=== PATIENT | female | born 1945 | race Caucasian/White ===

== ENCOUNTER 2016-07-28 13:38 | Emergency (ER) | payer OTHER, MEDICARE ==
[~2016-07-28] VITALS: Ht 172.7 cm; Wt 72.6 kg
--- NOTE | 2016-07-28 14:04 | ED GENERAL ADULT ---
See Addendum History of Present Illness General Chief Complaint: Lower Extremity Problems Stated Complaint: RIGHT HAND SWELLING Source: patient Exam Limitations: no limitations Vital Signs & Intake/Output Vital Signs & Intake/Output Vital Signs Date Time Temp Pulse Resp B/P B/P Pulse O2 O2 Flow FiO2 Mean Ox Delivery Rate 07/28 1648 98.0 84 18 124/74 100 Room Air 07/28 1529 97.8 84 18 119/68 96 Room Air 07/28 1350 99.3 91 20 123/79 98 Room Air Allergies Coded Allergies: No Known Allergies (07/28/16) Reconcile Medications Prednisone 20 MG TABLET 1 TAB PO DAILY ARTHRITIS TAKE WITH FOOD Triage Note: PAIN IN RIGHT HAND X 1 WEEK. PT STATES PAIN IS SHOOTING IN NATURE. PT DENIES INJURY. +SWELLING IN HAND Triage Nurses Notes Reviewed? yes Onset: Abrupt Duration: day(s): Timing: recent history HPI: 07/28/16 2:20 PM 71-year-old female presents to the emergency Department severe right-sided dorsal hand pain and restriction in her right shoulder. She says she's had swelling to the hand. She says it is so painful that it wakes her up from sleep. The onset of the symptoms were abrupt, the duration has been one week, the severity is significant; as her symptoms required her to come to the emergency department for care. She really has no significant past medical history. The onset of her symptoms were abrupt, the duration has been one week, the severity is significant as her symptoms required her to come to the emergency department for care. She does have decreased range of motion to the right shoulder. There is no swelling to the right arm. She does have swelling to the right dorsal hand. The right radial median and ulnar nerves are intact. She doesn't have any numbness to the fingers. Past History Travel History Traveled to [place] past 21 day No Medical History Any Pertinent Medical History? see below for history Surgical History Surgical History: non-contributory Psychosocial History What is your primary language Sami Tobacco Use: Current Daily Use Daily Tobacco Use Amount/Type: => 5 Cigarettes daily ETOH Use: occasional use Illicit Drug Use: denies illicit drug use Family History Hx Contributory? No Review of Systems Review of Systems Constitutional: Denies: fever. EENTM: Denies: visual changes. Respiratory: Denies: short of breath. Cardiovascular: Denies: chest pain. GI: Denies: abdominal pain. Genitourinary: Reports: no symptoms. Musculoskeletal: Reports: see HPI. Skin: Denies: rash. Neurological/Psychological: Denies: anxiety, ataxia. Hematologic/Endocrine: Denies: bleeding. Physical Exam Physical Exam General Appearance: well developed/nourished, alert, awake, anxious, mild distress Head: atraumatic, normal appearance Eyes: Bilateral: normal appearance, PERRL, EOMI. Ears, Nose, Throat: normal ENT inspection Neck: normal inspection, full range of motion Respiratory: no respiratory distress Cardiovascular: regular rate/rhythm Peripheral Pulses: 4+ dorsalis pedis (R), 4+ dorsalis pedis (L) Back: normal range of motion Extremities: swelling, tenderness Neurologic/Psych: no motor/sensory deficits, awake, alert, oriented x 3 Skin: intact, normal color, warm/dry Core Measures ACS in differential dx? No CVA/TIA Diagnosis: No Severe Sepsis Present: No Septic Shock Present: No Progress Differential Diagnoses I considered the following diagnoses in my evaluation of the patient: [ Tendinitis, fracture, septic arthritis, cellulitis] Plan of Care: Orders Procedure Date/time Status Durable Medical Equipment 07/28 1630 Active URIC ACID 07/28 1419 Complete LYME TITRE 07/28 1419 Active COMPREHENSIVE METABOLIC PANEL 07/28 1419 Complete CBC WITHOUT DIFFERENTIAL 07/28 1419 Complete Laboratory Tests 07/28/16 1430: Anion Gap 13, Estimated GFR > 60, BUN/Creatinine Ratio 20.0, Glucose 114 H, Uric Acid 5.1, Calcium 9.4, Total Bilirubin 0.3, AST 19, ALT 35, Alkaline Phosphatase 63, Total Protein 7.3, Albumin 3.9, Globulin 3.4, Albumin/Globulin Ratio 1.1, CBC w Diff NO MAN DIFF REQ, RBC 4.34, MCV 86.5, MCH 28.6, RDW 14.5, MPV 7.3 L, Gran % 83.2 H, Lymphocytes % 11.7 L, Monocytes % 4.4, Eosinophils % 0.5, Basophils % 0.2, Absolute Granulocytes 11.8 H, Absolute Lymphocytes 1.7, Absolute Monocytes 0.6, Absolute Eosinophils 0.1, Absolute Basophils 0, PUBS MCHC 33.0, Lyme Disease Antibody Pending Initial ED EKG: none Departure Departure Disposition: STILL A PATIENT Condition: Stable Clinical Impression Primary Impression: Arthritis Secondary Impressions: Tendinitis of extensor tendon of right hand Departure Forms: Customer Survey General Discharge Information Prescriptions: Current Visit Scripts Prednisone 1 TAB PO DAILY #5 TAB TAKE WITH FOOD Comments X-ray of the right shoulder right hand and right wrist is negative for fracture She did have evidence of significant arthritic changes The right wrist is not warm, the swelling is over the right hand. Uric acid levels normal. Lyme is pending. She did have mild leukocytosis. I suspect she has arthritis, she was treated with by mouth prednisone, splinting. She will follow-up with the hand physician this week. Return to the emergency department if fever or worse pain. Right wrist splint placed by ED RN she was told to keep the right hand elevated. Critical Care Note Critical Care Note Critical Care Time: non-applicable
[2016-07-28 14:37] LABS: ABSOLUTE BASOPHIL COUNT 0 /CUMM (0.0-0.2); ABSOLUTE EOSINOPHIL COUNT 0.1 /CUMM (0.0-0.7); ABSOLUTE GRANULOCYTE CT 11.8 /CUMM (1.4-6.5); ABSOLUTE LYMPH COUNT 1.7 /CUMM (1.2-3.4); ABSOLUTE MONOCYTE COUNT 0.6 /CUMM (0.10-0.60); BASOPHIL % 0.2 % (0.0-2.0); EOSINOPHIL % 0.5 % (0-5); GRANULOCYTE % 83.2 % (42.2-75.2); HEMATOCRIT 37.5 % (37-47); MEAN CORPUSCULAR HGB 28.6 PG (27.0-31.0); MEAN CORPUSCULAR VOLUME 86.5 FL (81.0-99.0); MEAN PLATELET VOLUME 7.3 FL (7.4-10.4); PLATELET COUNT 393 /CUMM (130-400); RBC DISTRIBUTION WIDTH 14.5 % (11.5-14.5); RED BLOOD CELL CT 4.34 /CUMM (4.20-5.40); WHITE BLOOD CELL COUNT 14.2 /CUMM (4.8-10.8)
--- NOTE | 2016-07-28 15:36 | RADIOLOGY REPORT ---
EXAMINATION: XR SHOULDER, RIGHT CLINICAL INFORMATION: Fall, pain COMPARISON: None TECHNIQUE: AP external rotation, Grashey, scapular Y, and axillary views of the right shoulder. FINDINGS: There is no acute fracture or dislocation of the left shoulder. Glenohumeral and acromioclavicular alignment is anatomic. Degenerative changes of the acromioclavicular and glenohumeral joint spaces noted. No abnormal soft tissue calcifications. The visualized right lung is clear. IMPRESSION: No acute fracture or dislocation of the right shoulder.
--- NOTE | 2016-07-28 15:44 | RADIOLOGY REPORT ---
EXAMINATION: XR RIGHT HAND AND RIGHT WRIST CLINICAL INFORMATION: Right hand and right wrist pain. COMPARISON: None. TECHNIQUE: AP, lateral and oblique views of the right hand and right wrist. Navicular view of the right wrist. FINDINGS: Right wrist: Demineralization of the visualized bones. Moderate degenerative changes involving the first carpal metacarpal joint. No acute fracture or dislocation of the right wrist. Carpal alignment appears grossly maintained. Right hand: No acute fracture or dislocation of the right hand. Mild degenerative changes involving the proximal and distal interphalangeal joints. No cortical erosions. Soft tissues appear unremarkable. Moderate degenerative changes involving the first carpal metacarpal joint with mild subluxation of the thumb at the level of the carpometacarpal joint. No radiopaque foreign bodies. Focal lucencies at the base of the fifth metacarpal bone as well as along the ulnar aspect of the triquetrum. IMPRESSION: 1. No acute fracture or dislocation of the right hand or right wrist. 2. Moderate degenerative changes involving the first carpal metacarpal joint with mild subluxation of the right thumb at this joint. 3. Carpal alignment is maintained. 4. Mild degenerative changes involving the proximal and distal interphalangeal joints of the right hand. 5. Incidental note is made of subtle cortical lucencies at the base of the fifth metacarpal bone as well as along the ulnar aspect of the triquetrum. These findings are nonspecific but may represent small cortical erosions.
[2016-07-28] MEDS ORDERED: PREDNISONE20 M1 PO (16:30)
[2016-07-28 16:48] VITALS: BP 124/74
== END 2016-07-28 16:49 ==
LOC: ERH 13:38
PROVIDERS: Emergency Medicine
DX: M77.9 Enthesopathy, unspecified (principal); M19.041 Primary osteoarthritis, right hand; D72.829 Elevated white blood cell count, unspecified
CPT/HCPCS: 86618; 73030-RT; 73110-RT; 73130-RT